=== PATIENT | male | born 1955 | race Caucasian/White ===

== ENCOUNTER → 2018-07-31 | Outpatient (CLI) | payer OTHER ==
[~2018-07-31] MED LIST: AMBIEN5 MG PO; ASPIRIN ADULT L81 M1 PO; AVPAK AZITHROM250 MG PO; B12,B-12,B 12500 MC1 PO; CARVEDILOL3.125 MG PO; DOXYCYCLINE100 M3 PO; ENTRESTO 24 MG1 EACH PO; FLOMAX0.4 MG PO; KEFLEX500 MG PO; LASIX20 MG PO; LEVOFLOXACIN500 MG PO; LIPITOR20 MG PO; LISINOPRIL2.5 MG PO; LORTAB PO; PREDNISONE10 MG PO; PRILOSEC10 MG PO; PROAIR HFA8.5 GM INH; SEPTDS PO; SIMVASTATIN5 MG PO; STIOLTO RESPIMAT4 GM INH; TOPROL XL25 MG PO; VENTOLIN 02.5 MG/3 M INH
[2018-07-31 15:40] LABS: BUN 23 mg/dl (7-24); CHLORIDE 103 mmol/L (98-107); CREATININE 1.05 mg/dL (0.70-1.30); POTASSIUM 4.5 mmol/L (3.5-5.1); SODIUM 137 mmol/L (136-145)
== END | disposition home or self-care (01) ==
LOC: LAB 14:03
PROVIDERS: Internal Medicine
DX: N17.0 Acute kidney failure with tubular necrosis (principal)

== ENCOUNTER → 2024-05-10 | Outpatient (CLI) | payer OTHER ==
[2024-05-10 11:40] LABS: HEMATOCRIT 44.9 % (42.0-52.0); MEAN CELL VOLUME 96.6 fl (80.0-94.0); MEAN CORPUSCULAR HGB 32.3 pg (27.0-31.0); MEAN CORPUSCULAR HGB CONC 33.4 g/dl (33.0-37.0); MEAN PLATELET VOLUME 11.5 fl (9.6-12.3); PLATELET COUNT AUTOMATED 145 10*3/uL (130-400); RED BLOOD COUNT 4.65 10*6/uL (4.50-5.90); WHITE BLOOD COUNT 7.8 10*3/uL (4.8-10.8)
[2024-05-10 11:42] LABS: MANUAL DIFF REFLEX YES
[2024-05-10 12:03] LABS: BASOPHILS 1 % (0-1); TOTAL CELLS COUNTED 100 #CELLS
[2024-05-10 12:04] LABS: BURR CELLS FEW; OVALOCYTES FEW; PLATELET SUFFICIENCY NORMAL (NORMAL); POLYCHROMASIA SLIGHT
[2024-05-10 12:16] LABS: BUN 14 mg/dl (9-23); CHLORIDE 105 mmol/L (98-107); POTASSIUM 4.6 mmol/L (3.4-5.1)
== END | disposition home or self-care (01) ==
LOC: LAB 11:18
PROVIDERS: ATTEND Internal Medicine Cardiovascular Disease
DX: Z01.812 Encounter for preprocedural laboratory examination (principal); I50.22 Chronic systolic (congestive) heart failure; I49.5 Sick sinus syndrome; Z95.810 Presence of automatic (implantable) cardiac defibrillator

== ENCOUNTER 2025-03-01 11:24 | Observation (INO) | payer OTHER ==
[~2025-03-01] VITALS: Ht 185.4 cm; Wt 84.1 kg
[2025-03-01 11:24] VITALS: BP 116/72
[2025-03-01] MEDS ORDERED: NITROGLYCERIN 0.4 MG BOT SL ONE (11:55)
[2025-03-01] MEDS ORDERED: NITROGLYCERIN 13.8 GM CANS SL ONE (11:55)
[2025-03-01 12:29] LABS: BASO # 0.0 10*3/uL (0.0-0.1); BASO % 0.3 % (0.0-1.0); EOS # 0.4 10*3/uL (0.0-0.4); EOS % 5.4 % (1.0-4.0); MEAN CELL VOLUME 94.8 fl (80.0-94.0); MEAN CORPUSCULAR HGB 32.4 pg (27.0-31.0); MEAN PLATELET VOLUME 11.0 fl (9.6-12.3); MONO # 0.6 10*3/uL (0.1-1.0); MONO % 9.2 % (3.0-9.0); NEUT # 3.4 10*3/uL (2.3-7.9); NEUT % 51.7 % (47.0-73.0); NUCLEATED RED BLOOD CELL 0.0 % (0.0-0.0); NUCLEATED RED BLOOD CELL 0.0 10*3/uL (0.0-0.0); PLATELET COUNT AUTOMATED 145 10*3/uL (130-400); RED CELL DISTRI WIDTH 13.2 % (0-14.5)
[2025-03-01 12:52] LABS: BUN 10 mg/dl (9-23); SGPT/ALT 10 U/L (5-49)
[2025-03-01 14:24] VITALS: BP 107/63
[2025-03-01] MEDS ORDERED: PROPECIA1 MG PO (15:09)
[2025-03-01] MEDS ORDERED: ALDACTONE25 M1 PO (15:09)
[2025-03-01] MEDS ORDERED: [UNRECOGNIZED DRUG - REMARK] (15:10)
[2025-03-01] MEDS ORDERED: Ondansetron Hydrochloride 4 MG/2 ML VIAL IV PRN (16:50)
[2025-03-01] MEDS ORDERED: TEMAZEPAM 15 MG CAP PO PRN (16:50)
[2025-03-01 16:52] VITALS: BP 118/85
[2025-03-01] MEDS ORDERED: Albuterol Sulf/Ipratropium 3 ML VIAL NEB ONE (16:55)
[2025-03-01 17:00] VITALS: BP 108/91
[2025-03-01] MEDS ORDERED: Albuterol Sulf/Ipratropium 3 ML VIAL NEB PRN (17:00)
[2025-03-01] MEDS ORDERED: AZITHROMYCIN 250 ML IV SCH (17:00)
[2025-03-01 20:00] VITALS: BP 118/76
[2025-03-01] MEDS ORDERED: GUAIFENESIN 600 MG TAB ER PO SCH (22:00)
[2025-03-01] MEDS ORDERED: ATORVASTATIN CALCIUM 40 MG TABLET PO SCH (22:00)
[2025-03-01] MEDS ORDERED: SACUBITRIL/VALSARTAN 24 MG-26 MG TABLET PO SCH (22:00)
[2025-03-02] VITALS: BP 106/78
[2025-03-02 05:35] LABS: LDL CHOLESTEROL 106.0 mg/dL (9-159)
[2025-03-02 08:00] VITALS: BP 114/80
[2025-03-02] MEDS ORDERED: SPIRONOLACTONE 25 MG TAB PO SCH (10:00)
[2025-03-02] MEDS ORDERED: ASPIRIN, CHEWABLE 81 MG TAB PO SCH (10:00)
[2025-03-02] MEDS ORDERED: METOPROLOL SUCCINATE XR 25 MG TAB PO SCH (10:00)
[2025-03-02 12:00] VITALS: BP 112/65
[2025-03-02] MEDS ORDERED: MUCUS RELIEF E600 MG PO (12:05)
[2025-03-02] MEDS ORDERED: ADV 100/50 INH (12:05)
[2025-03-02] MEDS ORDERED: PREDNISONE10 MG PO (12:05)
[2025-03-02] MEDS ORDERED: AMOX-CLAV 875-1 EACH PO (12:05)
== END 2025-03-02 15:12 | disposition left against medical advice (07) ==
LOC: ED 11:24 → 4E 15:11 → EDHOLD 15:11 → 4E 15:11
PROVIDERS: Emergency Medicine; Internal Medicine; ADMIT Internal Medicine; ATTEND Internal Medicine
DX: J44.9 Chronic obstructive pulmonary disease, unspecified (principal); D64.9 Anemia, unspecified; R07.89 Other chest pain; R73.9 Hyperglycemia, unspecified; J98.4 Other disorders of lung; T82.7XXA Infection and inflammatory reaction due to other cardiac and vascular devices, implants and grafts, initial encounter; K44.9 Diaphragmatic hernia without obstruction or gangrene; E78.5 Hyperlipidemia, unspecified; F17.210 Nicotine dependence, cigarettes, uncomplicated; F12.90 Cannabis use, unspecified, uncomplicated; Z95.5 Presence of coronary angioplasty implant and graft; Z98.890 Other specified postprocedural states; Z79.899 Other long term (current) drug therapy